=== PATIENT | female | born 1950 | race Caucasian/White ===

== ENCOUNTER 2017-06-26 12:38 | Emergency (ER) | payer MEDICARE, BC ==
--- NOTE | 2017-06-26 13:25 | EDM.PDOC ---
ED HPI GENERAL MEDICAL PROBLEM - General Chief Complaint: ENT Problem Stated Complaint: SINUS' Time Seen by Provider: 06/26/17 13:05 Source of Information: Reports: Patient, RN, RN Notes Reviewed History Limitations: Reports: No Limitations - History of Present Illness INITIAL COMMENTS - FREE TEXT/NARRATIVE: Pt presents to the ER with c/o cough, congestion, sore throat, ears feeling full , headache, and teeth aching for about 2 weeks. Pt denies fever or chills. She states she has had a productive cough with dark green sputum. She states she has been taking everything over the counter that she can think of. About 2 weeks ago she had aching in her back and down her legs. She states that resolved , but the head cold has progressively gotten worse. Onset: Gradual Location: Reports: Head, Face, Chest Severity: Moderate Improves with: Reports: None Worsens with: Reports: None Headache Pain Score (Numeric/FACES): 5 - Related Data Allergies Allergy/AdvReac Type Severity Reaction Status Date / Time cephalexin Allergy Unknown Itching Verified 11/20/14 09:09 hydrocodone Allergy Unknown Itching Verified 11/20/14 09:09 meloxicam Allergy Unknown INTOLERANCE Verified 11/20/14 09:09 tramadol HCl [From Ultram] Allergy Unknown Itching Verified 11/20/14 09:09 environmental allergies Allergy Other Uncoded 06/26/17 12:45 Home Meds: Home Meds Alendronate [Fosamax] 70 mg PO WEEKLY 07/20/16 [History] Hydrochlorothiazide 12.5 mg PO DAILY 07/20/16 [History] Methotrexate 22.5 mg PO .Tuesday07/20/16 [History] Metoprolol Tartrate [Lopressor] 50 mg PO BID 07/20/16 [History] Pantoprazole Sodium 40 mg PO DAILY 07/20/16 [History] Simvastatin [Zocor] 20 mg PO BEDTIME 07/20/16 [History] Venlafaxine [Effexor XR] 75 mg PO DAILY 07/20/16 [History] Zolpidem [Ambien] 10 mg PO BEDTIME 07/20/16 [History] Golimumab [Simponi Aria] 50 mg IV .[id number] 06/26/17 [History] Past Medical History 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 History: Reports: GERD 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: Musculoskeletal History: Reports: RA - Infectious Disease History Infectious Disease History: Reports: Chicken Pox, Measles, Mumps - Past Surgical History Female Surgical History: Reports: Hysterectomy, Other (See Below) Other Female Surgeries/Procedures: bladder lift Musculoskeletal Surgical History: Reports: Other (See Below) Other Musculoskeletal Surgeries/Procedures:: wrist fracture Social & Family History - Family History Family Medical History: Noncontributory - Tobacco Use Smoking Status *Q: Never Smoker Second Hand Smoke Exposure: No - Caffeine Use Caffeine Use: Reports: Coffee - Recreational Drug Use Recreational Drug Use: No ED ROS ENT - Review of Systems Review Of Systems: ROS reveals no pertinent complaints other than HPI. ED EXAM, ENT - Physical Exam Exam: See Below Exam Limited By: No Limitations General Appearance: Alert, WD/WN, Mild Distress Eye Exam: Bilateral Eye: EOMI, Normal Inspection Ears: Normal External Exam, Hearing Grossly Normal, TM Blood (right) Nose: Nasal Discharge, Other (injected turbinates bilaterally) Mouth/Throat: Normal Inspection, Normal Gums, Normal Lips, Tonsillar Erythema, Tonsillar Swelling Head: Atraumatic, Normocephalic Neck: Normal Inspection, Supple, Non-Tender, Full Range of Motion Respiratory/Chest: No Respiratory Distress, No Accessory Muscle Use, Chest Non- Tender, Decreased Breath Sounds, Rhonchi (upper lobes) Cardiovascular: Normal Peripheral Pulses, Regular Rate, Rhythm, No Edema, No Gallop, No JVD, No Murmur, No Rub GI/Abdominal: Normal Bowel Sounds, Soft, Non-Tender, No Organomegaly, No Distention, No Abnormal Bruit, No Mass (Female) Exam: Deferred Rectal (Female) Exam: Deferred Back: Normal Inspection, Full Range of Motion Extremities: Normal Inspection, Normal Range of Motion, Non-Tender, No Pedal Edema, Normal Capillary Refill Neurological: Alert, Oriented, CN II-XII Intact, Normal Cognition, Normal Gait, Normal Reflexes, No Motor/Sensory Deficits Psychiatric: Normal Affect, Normal Mood Skin: Warm, Dry, Intact, Normal Color, No Rash Lymphatic: No Adenopathy Course - Vital Signs Last Recorded V/S: Last Vital Signs Temp 97.8 F 06/26/17 12:53 Pulse 105 H 06/26/17 12:53 Resp 18 06/26/17 12:53 BP 146/91 H 12/31/17 13:20 Pulse Ox 95 06/26/17 12:53 Departure - Departure Time of Disposition: 13:23 Disposition: Home, Self-Care 01 Condition: Fair Clinical Impression: Bronchitis Sinusitis Qualifiers: Sinusitis location: unspecified location Chronicity: acute Recurrence: not specified as recurrent Qualified Code(s): J01.90 - Acute sinusitis, unspecified - Discharge Information Instructions: Sinusitis, Adult, [id number] Forms: ED Department Discharge Additional Instructions: Drink plenty of water RX: Cheratussin, Flonase, Augmentin Continue using OTC decongestants Follow up with your primary care facility if no improvement
== END 2017-06-26 13:40 | disposition home or self-care (01) ==
LOC: DL.ED 12:38
DX: J40 Bronchitis, not specified as acute or chronic (principal); J01.90 Acute sinusitis, unspecified; Z88.1 Allergy status to other antibiotic agents; Z88.5 Allergy status to narcotic agent; Z88.8 Allergy status to other drugs, medicaments and biological substances; Z79.899 Other long term (current) drug therapy
CPT/HCPCS: 99283

== ENCOUNTER 2019-04-28 17:08 | Emergency (ER) | payer MEDICARE, BC ==
[2019-04-28] MEDS ORDERED: Aspirin 81 MG Tab.Chew ONE (17:59)
[2019-04-28] MEDS ORDERED: Aspirin 81 MG Tab.Chew PO ONE (18:04)
[2019-04-28] MEDS ORDERED: Sodium Chloride 0.9% 10 ML Syringe FLUSH PRN (18:05)
[2019-04-28] MEDS: Nitroglycerin 0.4 MG Tab.SL SL PRN ×2 (18:17→18:34)
[2019-04-28 18:41] LABS: ANION GAP 12.6; CHLORIDE,CL 100 mmol/L (101-111); SODIUM,NA 139 mmol/L (135-145)
--- NOTE | 2019-04-28 19:17 | EDM.PDOC ---
Scribed by Christina Blackwell 04/28/19 1910 for Aminata Cobian MD ED HPI GENERAL MEDICAL PROBLEM - General Chief Complaint: Cardiovascular Problem Stated Complaint: HIGH BP Time Seen by Provider: 04/28/19 17:34 Source of Information: Reports: Patient, RN, RN Notes Reviewed History Limitations: Reports: No Limitations - History of Present Illness INITIAL COMMENTS - FREE TEXT/NARRATIVE: Patient presents to the ER via POV. She went in for back injections two to three days ago. Her blood pressure has increased since having these injections. Patient also complains of dull pressure in chest but states "its not bad". Patient had a single cardiac stent in September, due to a similar chest pressure. However, chest pressure has continued to recur despite the placement of the stent. She was subsequently referred to pulmonology where she was diagnosed with mild asthma. Patient states that the asthma treatments made no difference in her chest pressure. The chest pressure that she has experienced over the past several days is described "exactly the same" that she has had throughout the past year. Onset: Gradual Duration: Constant Location: Reports: Chest Quality: Reports: Ache Severity: Moderate Improves with: Reports: None Worsens with: Reports: None Associated Symptoms: Reports: No Other Symptoms Back Pain Score (Numeric/FACES): 5 - Related Data Allergies Allergy/AdvReac Type Severity Reaction Status Date / Time cephalexin Allergy Unknown Itching Verified 11/13/18 11:23 hydrocodone Allergy Unknown Itching Verified 11/13/18 11:23 meloxicam Allergy Unknown INTOLERANCE Verified 11/13/18 11:23 tramadol HCl [From Ultram] Allergy Unknown Itching Verified 11/13/18 11:23 environmental allergies Allergy Other Uncoded 11/13/18 11:23 Home Meds: Home Meds Alendronate [Fosamax] 70 mg PO WEEKLY 07/20/16 [History] Hydrochlorothiazide 25 mg PO DAILY 07/20/16 [History] Methotrexate 17.5 mg PO WEEKLY 07/20/16 [History] Metoprolol Tartrate [Lopressor] 50 mg PO BID 07/20/16 [History] Pantoprazole Sodium 40 mg PO DAILY 07/20/16 [History] Venlafaxine [Effexor XR] 75 mg PO DAILY 07/20/16 [History] Zolpidem [Ambien] 10 mg PO BEDTIME 07/20/16 [History] Aspirin [Lo-Dose Aspirin EC] 81 mg PO DAILY 11/09/18 [History] Calcium Carbonate/Vitamin D3 [Calcium 500 + Vit D Caplet] 3 tab PO DAILY [History] Clopidogrel Bisulfate [Clopidogrel] 75 mg PO DAILY 11/09/18 [History] Clotrimazole [Clotrimazole 1%] 1 applic TOP BID PRN 11/09/18 [History] Fluticasone Propionate [Flonase] 1 spray NASBOTH DAILY PRN 11/09/18 [History] Folic Acid 2 mg PO DAILY 11/09/18 [History] Hydroxychloroquine [Plaquenil] 400 mg PO BID 11/09/18 [History] Losartan [Cozaar] 100 mg PO DAILY 11/09/18 [History] Pilocarpine [Salagen] 5 mg PO TID PRN 11/09/18 [History] cycloSPORINE [Restasis] 1 drop EYEBOTH ASDIRECTED PRN 11/09/18 [History] sulfaSALAzine [Azulfidine] 1,000 mg PO DAILY 11/09/18 [History] Past Medical History Cardiovascular History: Reports: PTCA 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: Reports: 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: Musculoskeletal History: Reports: RA - Infectious Disease History Infectious Disease History: Reports: Chicken Pox, Measles, Mumps - Past Surgical History Cardiovascular Surgical History: Reports: Coronary Artery Stent Female Surgical History: Reports: Hysterectomy, Other (See Below) Other Female Surgeries/Procedures: bladder lift Musculoskeletal Surgical History: Reports: Other (See Below) Other Musculoskeletal Surgeries/Procedures:: wrist fracture Social & Family History - Family History Family Medical History: Noncontributory - Caffeine Use Caffeine Use: Reports: Coffee - Living Situation & Occupation Living situation: Reports: with Family ED ROS GENERAL - Review of Systems Review Of Systems: ROS reveals no pertinent complaints other than HPI. ED EXAM, GENERAL - Physical Exam Exam: See Below Exam Limited By: No Limitations General Appearance: Alert, WD/WN, No Apparent Distress, Anxious, Obese Eye Exam: Bilateral Eye: EOMI, Normal Inspection Ears: Normal External Exam, Normal Canal, Hearing Grossly Normal, Normal TMs Nose: Normal Inspection, Normal Mucosa, No Blood Throat/Mouth: Normal Inspection, Normal Lips, Normal Oropharynx, Normal Voice, No Airway Compromise Head: Atraumatic, Normocephalic Neck: Normal Inspection, Full Range of Motion Respiratory/Chest: No Respiratory Distress, Lungs Clear, Normal Breath Sounds, No Accessory Muscle Use, Chest Non-Tender Cardiovascular: Normal Peripheral Pulses, Regular Rate, Rhythm, No Edema, No Gallop, No JVD, No Murmur, No Rub GI/Abdominal: Normal Bowel Sounds, Soft, Non-Tender, No Organomegaly, No Distention, No Abnormal Bruit, No Mass (Female) Exam: Deferred Rectal (Female) Exam: Deferred Back Exam: Normal Inspection, Full Range of Motion, NT Extremities: Normal Inspection, Normal Range of Motion, Non-Tender, Normal Capillary Refill, No Pedal Edema Neurological: Alert, Oriented, CN II-XII Intact, Normal Cognition, Normal Gait, No Motor/Sensory Deficits Psychiatric: Normal Affect, Normal Mood Skin Exam: Warm, Dry, Intact, Normal Color, No Rash EKG INTERPRETATION EKG Date: 04/28/19 Time: 17:43 Rhythm: Other (sinus rhythm) Rate (Beats/Min): 85 [place]: Normal P-Wave: Present QRS: Normal ST-T: Normal QT: Normal Comparison: NA - No Prior EKG Course - Vital Signs Last Recorded V/S: Last Vital Signs Temp 98.3 F 04/28/19 17:31 Pulse 90 04/28/19 17:31 Resp 18 04/28/19 17:31 BP 156/93 H 04/28/19 18:34 Pulse Ox 95 04/28/19 17:31 - Orders/Labs/Meds Orders: Active Orders 24 hr Category Date Time Status EKG 12 Lead [EKG Documentation Completion] [RC] STAT Care 04/28/19 18:05 Active Peripheral IV Care [RC] . DIRECTED Care 04/28/19 18:05 Active Chest 1V Frontal [CR] Stat Exams 04/28/19 18:05 Taken Nitroglycerin [Nitrostat] Med 04/28/19 18:04 Active 0.4 mg SL Q5M PRN Sodium Chloride 0.9% [Saline Flush] Med 04/28/19 18:05 Active 10 ml FLUSH ASDIRECTED PRN Peripheral IV Insertion Adult [OM.PC] Stat Oth 04/28/19 18:05 Ordered Medication Orders Nitroglycerin (Nitrostat) 0.4 mg SL Q5M PRN PRN Reason: Chest Pain Last Admin: 04/28/19 18:34 Dose: 0.4 mg Admin: 04/28/19 18:17 Dose: 0.4 mg Sodium Chloride (Saline Flush) 10 ml FLUSH ASDIRECTED PRN PRN Reason: Keep Vein Open Labs: Laboratory Tests 04/28/19 04/28/19 04/28/19 Range/Units 18:11 18:11 18:11 WBC 8.9 (5.0-10.0) 10^3/uL RBC 4.27 (4.2-5.4) 10^6/uL Hgb 13.8 (12.0-16.0) g/dL Hct 42.3 (37.0-47.0) % MCV 99.1 (80-100) fL MCH 32.3 (27.0-34.0) pg MCHC 32.6 L (33.0-35.0) g/dL Plt Count 305 (150-450) 10^3/uL Neut % (Auto) 66.7 (42.2-75.2) % Lymph % (Auto) 19.3 L (20.5-50.1) % [place] % (Auto) 13.5 H (2-8) % Eos % (Auto) 0.2 L (1.0-3.0) % Baso % (Auto) 0.3 (0.0-1.0) % PT 10.1 (9.0-12.0) SEC INR 1.0 (0.9-1.2) APTT 23.0 (22.0-34.0) SEC Sodium 139 (135-145) mmol/L Potassium 3.6 (3.6-5.0) mmol/L Chloride 100 L (101-111) mmol/L Carbon Dioxide 30.0 (21.0-31.0) mmol/L Anion Gap 12.6 BUN 24 H (7-18) mg/dL Creatinine 0.7 (0.6-1.3) mg/dL Est Cr Clr Drug Dosing 67.29 mL/min Estimated GFR (MDRD) > 60 BUN/Creatinine Ratio 34.28 Glucose 103 (74-105) mg/dL Calcium 10.3 H (8.4-10.2) mg/dl Total Bilirubin 0.6 (0.2-1.0) mg/dL AST 17 (10-42) IU/L ALT 14 (10-60) IU/L Alkaline Phosphatase 60 (42-121) IU/L Troponin I < 0.02 (0.00-0.02) ng/ml Total Protein 7.1 (6.7-8.2) g/dl Albumin 4.2 (3.2-5.5) g/dl Globulin 2.9 Albumin/Globulin Ratio 1.45 Amylase 56 (28-100) U/L Lipase 37 (22-51) U/L Meds: Medications Generic Name Dose Route Start Last Admin Trade Name Freq PRN Reason Stop Dose Admin Nitroglycerin 0.4 mg 04/28/19 18:04 04/28/19 18:34 Nitrostat SL 0.4 mg Q5M PRN Administration Chest Pain Sodium Chloride 10 ml 04/28/19 18:05 Saline Flush FLUSH ASDIRECTED PRN Keep Vein Open Discontinued Medications Generic Name Dose Route Start Last Admin Trade Name Freq PRN Reason Stop Dose Admin Aspirin Confirm 04/28/19 17:59 04/28/19 18:28 Aspirin Administered 04/28/19 18:00 Not Given Dose 324 mg .ROUTE .STK-MED ONE Aspirin 243 mg 04/28/19 18:04 04/28/19 18:15 Aspirin PO 04/28/19 18:05 243 mg ONETIME ONE Administration - Radiology Interpretation Free Text/Narrative:: [facility] [place] [facility] Final Radiology Report Call: [phone] assistance Online chat: [email or web address] Name: ANTONINO LEDEZMA Age: 68Years F Date: 04/28/2019 SSN: -- : 1950 Study: XR CHEST 1 VIEW FRONTAL Requesting Physician: AMINATA COBIAN Images: 1 Addl Studies: Provided Clinical History: Contrast: Contrast Medium: Contrast Amount: Contrast Method: CONFIDENTIALITY STATEMENT This report is intended only for use by the referring physician, and only in accordance with law. If you received this in error, call [phone]. Page 1 of 1 PROCEDURE INFORMATION: Exam: XR Chest, 1 View Exam date and time: 04/28/2019 6:38 PM Clinical history: 68 years old, female; Other: Chest pain TECHNIQUE: Imaging protocol: XR of the chest Views: 1 view. COMPARISON: CT Chest wo Cont 02/22/2019 2:50 PM FINDINGS: Tubes, catheters and devices: EKG leads overlie the chest. Lungs: Unremarkable. No consolidation. Pleural space: Unremarkable. No pleural effusion. No pneumothorax. Heart/Mediastinum: Unremarkable. No cardiomegaly. Bones/joints: Unremarkable. IMPRESSION: No acute findings. Thank you for allowing us to participate in the care of your patient. Dictated and Authenticated by: Eleuterio Cook MD 04/28/2019 6:51 PM Central Time ([place] & [place]) Departure - Departure Time of Disposition: 19:11 Disposition: Home, Self-Care 01 Condition: Good Clinical Impression: Transient elevated blood pressure, Chest pressure - Discharge Information *PRESCRIPTION DRUG MONITORING PROGRAM REVIEWED*: No *COPY OF PRESCRIPTION DRUG MONITORING REPORT IN PATIENT AKUA: No Instructions: Hypertension, Nonspecific Chest Pain Forms: ED Department Discharge Additional Instructions: Follow up in clinic this week for blood pressure recheck. Return to ER if chest pain/pressure worsens, or if any new symptoms develop. Return to ER if blood pressure is over 210 on top number, or 110 on bottom number. - My Orders Last 24 Hours: My Active Orders 04/28/19 18:04 Nitroglycerin [Nitrostat] 0.4 mg SL Q5M PRN 04/28/19 18:05 EKG 12 Lead [EKG Documentation Completion] [RC] STAT Peripheral IV Care [RC] . DIRECTED Chest 1V Frontal [CR] Stat Sodium Chloride 0.9% [Saline Flush] 10 ml FLUSH ASDIRECTED PRN Peripheral IV Insertion Adult [OM.PC] Stat - Assessment/Plan Last 24 Hours: My Active Orders 04/28/19 18:04 Nitroglycerin [Nitrostat] 0.4 mg SL Q5M PRN 04/28/19 18:05 EKG 12 Lead [EKG Documentation Completion] [RC] STAT Peripheral IV Care [RC] . DIRECTED Chest 1V Frontal [CR] Stat Sodium Chloride 0.9% [Saline Flush] 10 ml FLUSH ASDIRECTED PRN Peripheral IV Insertion Adult [OM.PC] Stat I have read and agree with the documentation that has been completed regarding this visit. By signing this record, I attest that the documentation was completed in my physical presence and is an accurate record of the encounter.
== END 2019-04-28 19:24 | disposition home or self-care (01) ==
LOC: DL.ED 17:08
DX: R03.0 Elevated blood-pressure reading, without diagnosis of hypertension (principal); R07.89 Other chest pain; J45.909 Unspecified asthma, uncomplicated; K21.9 Gastro-esophageal reflux disease without esophagitis; M06.9 Rheumatoid arthritis, unspecified; E66.9 Obesity, unspecified; Z68.35 Body mass index [BMI] 35.0-35.9, adult; Z95.5 Presence of coronary angioplasty implant and graft; Z91.09 Other allergy status, other than to drugs and biological substances; Z88.1 Allergy status to other antibiotic agents; Z88.5 Allergy status to narcotic agent; Z88.6 Allergy status to analgesic agent; Z79.02 Long term (current) use of antithrombotics/antiplatelets; Z79.82 Long term (current) use of aspirin; Z79.899 Other long term (current) drug therapy
CPT/HCPCS: 36415; 71045; 80053; 82150; 83690; 84484; 85025; 85610; 85730; 93005; 99285; A9270

== ENCOUNTER 2020-05-12 21:05 | Emergency (ER) | payer MEDICARE, BC ==
[2020-05-12] MEDS ORDERED: Sodium Chloride 0.9% 1,000 ML IV ONE (21:28)
--- NOTE | 2020-05-12 22:57 | EDM.PDOC ---
ED HPI GENERAL MEDICAL PROBLEM - General Chief Complaint: 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 Problem Stated Complaint: LOW BLOOD PRESSURE Time Seen by Provider: 05/12/20 21:10 Source of Information: Reports: Patient, Family History Limitations: Reports: No Limitations - History of Present Illness INITIAL COMMENTS - FREE TEXT/NARRATIVE: diarrhea one week tonight BP low in clinic today told to take additional metoprolol but did not due to already low BP. Daughter stejen check BP and multiple in 70's and 80's. No chest pain or SOB. daughter dx covid 04/23. denies exposure. Loose watery explosive stools 10+ per day. No fever or chills, No vomiting, Weak today. Seen in clinic. Appetite decreased. On doxycycline for skin condition for months. - Related Data Allergies Allergy/AdvReac Type Severity Reaction Status Date / Time cephalexin Allergy Unknown Itching Verified 11/13/18 11:23 hydrocodone Allergy Unknown Itching Verified 11/13/18 11:23 meloxicam Allergy Unknown INTOLERANCE Verified 11/13/18 11:23 tramadol HCl [From Ultram] Allergy Unknown Itching Verified 11/13/18 11:23 environmental allergies Allergy Other Uncoded 11/13/18 11:23 Home Meds: Home Meds Alendronate [Fosamax] 70 mg PO WEEKLY 07/20/16 [History] Hydrochlorothiazide 25 mg PO DAILY 07/20/16 [History] Methotrexate 17.5 mg PO WEEKLY 07/20/16 [History] Metoprolol Tartrate [Lopressor] 50 mg PO BID 07/20/16 [History] Pantoprazole Sodium 40 mg PO DAILY 07/20/16 [History] Venlafaxine [Effexor XR] 75 mg PO DAILY 07/20/16 [History] Zolpidem [Ambien] 10 mg PO BEDTIME 07/20/16 [History] Aspirin [Lo-Dose Aspirin EC] 81 mg PO DAILY 11/09/18 [History] Calcium Carbonate/Vitamin D3 [Calcium 500 + Vit D Caplet] 3 tab PO DAILY 11/09/18 [History] Clopidogrel Bisulfate [Clopidogrel] 75 mg PO DAILY 11/09/18 [History] Clotrimazole [Clotrimazole 1%] 1 applic TOP BID PRN 11/09/18 [History] Fluticasone Propionate [Flonase] 1 spray NASBOTH DAILY PRN 11/09/18 [History] Folic Acid 2 mg PO DAILY 11/09/18 [History] Hydroxychloroquine [Plaquenil] 400 mg PO BID 11/09/18 [History] Losartan [Cozaar] 100 mg PO DAILY 11/09/18 [History] Pilocarpine [Salagen] 5 mg PO TID PRN 11/09/18 [History] cycloSPORINE [Restasis] 1 drop EYEBOTH ASDIRECTED PRN 11/09/18 [History] sulfaSALAzine [Azulfidine] 1,000 mg PO DAILY 11/09/18 [History] Doxycycline Hyclate 100 mg PO 05/12/20 [History] atorvaSTATin [Lipitor] 20 mg PO 05/12/20 [History] predniSONE 5 mg PO 05/12/20 [History] Past Medical History HEENT History: Reports: Cataract, Hard of Hearing, Sinusitis Cardiovascular History: Reports: PTCA Respiratory History: Reports: Bronchitis, Recurrent 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 History: Reports: GERD Genitourinary History: Reports: None [employer] History: Reports: Musculoskeletal History: Reports: RA Neurological History: Reports: None Psychiatric History: Reports: None Endocrine/Metabolic History: Reports: None Hematologic History: Reports: None Oncologic (Cancer) History: Reports: None Dermatologic History: Reports: None - Infectious Disease History Infectious Disease History: Reports: Chicken Pox, Measles, Mumps - Past Surgical History Head Surgeries/Procedures: Reports: None HEENT Surgical History: Reports: Cataract Surgery Cardiovascular Surgical History: Reports: Coronary Artery Stent Female Surgical History: Reports: Hysterectomy, Other (See Below) Other Female Surgeries/Procedures: bladder lift Musculoskeletal Surgical History: Reports: Other (See Below) Other Musculoskeletal Surgeries/Procedures:: wrist fracture Social & Family History - Family History Family Medical History: No Pertinent Family History - Tobacco Use Tobacco Use Status *Q: Never Tobacco User Second Hand Smoke Exposure: No - Caffeine Use Caffeine Use: Reports: Coffee - Recreational Drug Use Recreational Drug Use: No - Living Situation & Occupation Living situation: Reports: with Family ED ROS GENERAL - Review of Systems Review Of Systems: See Below Constitutional: Reports: Malaise, Fatigue HEENT: Reports: Glasses, Hearing Loss Respiratory: Reports: No Symptoms Cardiovascular: Reports: No Symptoms GI/Abdominal: Reports: Diarrhea, Nausea. Denies: Abdominal Pain, Hematemesis : Reports: No Symptoms Musculoskeletal: Reports: No Symptoms Skin: Reports: No Symptoms Neurological: Reports: Dizziness ED EXAM, GI/ABD - Physical Exam Exam: See Below Exam Limited By: No Limitations General Appearance: Alert, Mild Distress Eyes: Bilateral: EOMI Ears: Normal External Exam Nose: Normal Inspection Throat/Mouth: Normal Inspection Head: Atraumatic, Normocephalic Neck: Normal Inspection Respiratory/Chest: No Respiratory Distress, Lungs Clear, Normal Breath Sounds Cardiovascular: Normal Peripheral Pulses, Regular Rate, Rhythm GI/Abdominal Exam: Normal Bowel Sounds, Soft, Non-Tender. No: Distended, Guarding, Rebound, Tender Neurological: Alert, Oriented, Normal Cognition Psychiatric: Normal Affect, Normal Mood Skin Exam: Warm, Dry, Intact, Normal Color, No Rash Course - Vital Signs Last Recorded V/S: Last Vital Signs Temp 96.9 F 05/12/20 21:07 Pulse 87 05/12/20 21:07 Resp 18 05/12/20 21:07 BP 100/62 05/12/20 21:07 Pulse Ox 95 05/12/20 21:07 Orthostatic Blood Pressure [ 104/53 Standing] Orthostatic Blood Pressure [ 103/58 Sitting] Orthostatic Blood Pressure [ 97/49 Supine] - Orders/Labs/Meds Orders: Active Orders 24 hr Category Date Time Status CLOSTRIDIUM DIFFICILE TOX RFLX [MREF] Stat Lab 05/12/20 21:35 Received CULTURE STOOL [RM] Stat Lab 05/12/20 23:10 Received SHIGA TOXIN 1 & 2 [MREF] Stat Lab 05/12/20 23:10 Received Isolation [COMM] Stat Oth 05/12/20 21:25 Active Labs: Laboratory Tests 05/12/20 05/12/20 05/12/20 Range/Units 21:35 21:43 21:43 WBC 5.0 (5.0-10.0) 10^3/uL RBC 4.57 (4.2-5.4) 10^6/uL Hgb 14.3 (12.0-16.0) g/dL Hct 42.8 (37.0-47.0) % MCV 93.7 D (80-100) fL MCH 31.3 (27.0-34.0) pg MCHC 33.4 (33.0-35.0) g/dL Plt Count 202 D (150-450) 10^3/uL Neut % (Auto) 57.5 (42.2-75.2) % Lymph % (Auto) 16.1 L (20.5-50.1) % [place] % (Auto) 25.2 H (2-8) % Eos % (Auto) 0.8 L (1.0-3.0) % Baso % (Auto) 0.4 (0.0-1.0) % Add Manual Diff Yes Neutrophils % (Manual) 59 (42-75) % Lymphocytes % (Manual) 19 L (20-50) % Monocytes % (Manual) 22 H (2-8) % Sodium 133 L (136-145) mmol/L Potassium 3.0 L (3.5-5.1) mmol/L Chloride 95 L (98-107) mmol/L Carbon Dioxide 29 (21-32) mmol/L Anion Gap 12.0 (7-13) mEq/L BUN 23 H (7-18) mg/dL Creatinine 2.21 H (0.55-1.02) mg/dL Est Cr Clr Drug Dosing 21.01 mL/min Estimated GFR (MDRD) 22 BUN/Creatinine Ratio 10.4 (No establ ref range) Glucose 116 H (74-99) mg/dL Lactic Acid (0.4-2.0) mmol/L Calcium 8.1 L (8.5-10.1) mg/dL Magnesium 1.6 L (1.8-2.4) mg/dL Total Bilirubin 0.5 (0.2-1.0) mg/dL AST 12 L (15-37) U/L ALT 17 (14-59) U/L Alkaline Phosphatase 71 (46-116) U/L Total Protein 6.2 L (6.4-8.2) g/dL Albumin 2.6 L (3.4-5.0) g/dL Globulin 3.6 Albumin/Globulin Ratio 0.72 Amylase 29 (25-115) U/L Lipase 53 L (73-393) U/L SARS CoV-2 RNA Rapid KARTHIK Negative (NEGATIVE) 05/12/20 Range/Units 21:43 WBC (5.0-10.0) 10^3/uL RBC (4.2-5.4) 10^6/uL Hgb (12.0-16.0) g/dL Hct (37.0-47.0) % MCV (80-100) fL MCH (27.0-34.0) pg MCHC (33.0-35.0) g/dL Plt Count (150-450) 10^3/uL Neut % (Auto) (42.2-75.2) % Lymph % (Auto) (20.5-50.1) % [place] % (Auto) (2-8) % Eos % (Auto) (1.0-3.0) % Baso % (Auto) (0.0-1.0) % Add Manual Diff Neutrophils % (Manual) (42-75) % Lymphocytes % (Manual) (20-50) % Monocytes % (Manual) (2-8) % Sodium (136-145) mmol/L Potassium (3.5-5.1) mmol/L Chloride (98-107) mmol/L Carbon Dioxide (21-32) mmol/L Anion Gap (7-13) mEq/L BUN (7-18) mg/dL Creatinine (0.55-1.02) mg/dL Est Cr Clr Drug Dosing mL/min Estimated GFR (MDRD) BUN/Creatinine Ratio (No establ ref range) Glucose (74-99) mg/dL Lactic Acid 1.1 (0.4-2.0) mmol/L Calcium (8.5-10.1) mg/dL Magnesium (1.8-2.4) mg/dL Total Bilirubin (0.2-1.0) mg/dL AST (15-37) U/L ALT (14-59) U/L Alkaline Phosphatase (46-116) U/L Total Protein (6.4-8.2) g/dL Albumin (3.4-5.0) g/dL Globulin Albumin/Globulin Ratio Amylase (25-115) U/L Lipase (73-393) U/L SARS CoV-2 RNA Rapid KARTHIK (NEGATIVE) Meds: Medications Discontinued Medications Generic Name Dose Route Start Last Admin Trade Name Freq PRN Reason Stop Dose Admin Sodium Chloride 1,000 mls @ 250 mls/hr 05/12/20 21:28 05/12/20 21:54 Normal Saline IV 05/13/20 01:27 250 mls/hr .BOLUS ONE Administration - Re-Assessments/Exams Free Text/Narrative Re-Assessment/Exam: 05/13/20 04:22 BP improved with fluids, appears more alert and conversant with daughter. Results reviewed with patient and daughter. Departure - Departure Time of Disposition: 22:57 Disposition: Home, Self-Care 01 Condition: Good Clinical Impression: Diarrhea, Dehydration - Discharge Information *PRESCRIPTION DRUG MONITORING PROGRAM REVIEWED*: No *COPY OF PRESCRIPTION DRUG MONITORING REPORT IN PATIENT AKUA: No Instructions: Dehydration, Elderly, [id number], Diarrhea, Adult, [id number] Forms: ED Department Discharge Additional Instructions: BRAT diet limit milk products 24 hours small sips liquid more frequently hold doxycycline 48 hours Change positions slowly follow up clinic if not improving Sepsis Event Note (ED) - Evaluation Sepsis Screening Result: No Definite Risk - Focused Exam Vital Signs: Vital Signs Temp Pulse Resp BP Pulse Ox 05/12/20 21:07 96.9 F 87 18 100/62 95 - My Orders Last 24 Hours: My Active Orders 05/12/20 21:25 Isolation [COMM] Stat 05/12/20 21:35 CLOSTRIDIUM DIFFICILE TOX RFLX [MREF] Stat 05/12/20 23:10 CULTURE STOOL [RM] Stat SHIGA TOXIN 1 & 2 [MREF] Stat - Assessment/Plan Last 24 Hours: My Active Orders 05/12/20 21:25 Isolation [COMM] Stat 05/12/20 21:35 CLOSTRIDIUM DIFFICILE TOX RFLX [MREF] Stat 05/12/20 23:10 CULTURE STOOL [RM] Stat SHIGA TOXIN 1 & 2 [MREF] Stat
== END 2020-05-12 23:20 | disposition home or self-care (01) ==
LOC: DL.ED 21:05
DX: E86.0 Dehydration (principal); R19.7 Diarrhea, unspecified; K21.9 Gastro-esophageal reflux disease without esophagitis; Z20.828 Contact with and (suspected) exposure to other viral communicable diseases; Z88.5 Allergy status to narcotic agent; Z88.1 Allergy status to other antibiotic agents; Z90.710 Acquired absence of both cervix and uterus; Z95.5 Presence of coronary angioplasty implant and graft; Z91.09 Other allergy status, other than to drugs and biological substances; Z79.899 Other long term (current) drug therapy
CPT/HCPCS: 36415; 80053; 82150; 83605; 83690; 83735; 85025; 87045; 87046; 87493; 87899; 99283; 99284; J7030; U0002

== ENCOUNTER 2024-07-17 11:10 | Inpatient (IN) | payer MEDICARE, BC ==
[2024-07-17 12:31] LABS: HEMATOCRIT 39.1 % (37.0-47.0); HEMOGLOBIN 12.6 g/dL (12.0-16.0); MEAN CORPUSCULAR HGB CONC 32.2 g/dL (33.0-35.0); MEAN CORPUSCULAR VOLUME 102.4 fL (80-100); PLATELET COUNT,PLT 331 10^3/uL (150-450); RED BLOOD CELL COUNT 3.82 10^6/uL (4.2-5.4)
[2024-07-17 12:43] LABS: BASOPHILS PERCENT AUTO 0.1 % (0.0-1.0); EOSINOPHILS PERCENT AUTO 1.2 % (1.0-3.0); LYMPHOCYTES PERCENT AUTO 8.8 % (20.5-50.1); MONOCYTES PERCENT AUTO 8.2 % (2-8); NEUTROPHILS PERCENT AUTO 81.7 % (42.2-75.2)
[2024-07-17 12:51] LABS: A/G RATIO 0.68; ALBUMIN 2.7 g/dL (3.4-5.0); ANION GAP 12.5 mEq/L (7-13); BILIRUBIN TOTAL 0.9 mg/dL (0.2-1.0); CALCIUM 9.8 mg/dL (8.5-10.1); CREATININE 1.69 mg/dL (0.55-1.02); EST CRCL DRUG DOSING (CG) 23.79 mL/min; MAGNESIUM 1.8 mg/dL (1.8-2.4); POTASSIUM,K 3.5 mmol/L (3.5-5.1); PROTEIN TOTAL,TP 6.7 g/dL (6.4-8.2)
[2024-07-17 13:16] LABS: EOSINOPHILS PERCENT MAN 1 % (1-3); LYMPHOCYTES PERCENT MAN 7 % (20-50); MONOCYTES PERCENT MAN 12 % (2-8); SEG NEUTROPHILS PERCENT MAN 80 % (42-75)
[2024-07-17 14:21] LABS: LACTIC ACID 1.2 mmol/L (0.4-2.0)
[2024-07-17] MEDS: Sodium Chloride 0.9% 2,000 ML IV ONE (14:24)
[2024-07-17] MEDS: Ciprofloxacin in D5W 400 MG in Premix Bag 1 BAG IV ONE (14:24)
[2024-07-17] MEDS ORDERED: Docusate Sodium 100 MG Cap PO PRN (18:10)
[2024-07-17] MEDS ORDERED: Polyethylene Glycol 3350 Powder 17 GM Packet PO PRN (18:10)
[2024-07-17] MEDS ORDERED: Ondansetron 4 MG/2 ML SDV IVPUSH PRN (18:10)
[2024-07-17] MEDS: Ketorolac 30 MG/ML SDV IVPUSH PRN (19:41)
[2024-07-17] MEDS: methylPREDNISolone Sodium Succinate 40 MG/1 ML SDV IVPUSH SCH (19:46)
[2024-07-17] MEDS: Levofloxacin/Dextrose 5%-Water 150 ML IV ONE (20:10)
[2024-07-17] MEDS: Zolpidem 5 MG Tab PO SCH (22:24)
[2024-07-17] MEDS: Pantoprazole 40 MG Tab.CR PO SCH (22:24)
[2024-07-17] MEDS: Albuterol/Ipratropium 3.0-0.5 MG/3 ML Neb Soln NEB SCH (22:24)
[2024-07-17] MEDS: Metoprolol Tartrate 50 MG Tab PO SCH (22:25)
[2024-07-17] MEDS: Sodium Chloride 0.9% 1,000 ML IV SCH (22:45)
[2024-07-18] MEDS: Melatonin 3 MG Tab PO PRN (00:11)
[2024-07-18 06:36] LABS: BASOPHILS PERCENT AUTO 0.1 % (0.0-1.0); HEMATOCRIT 36.4 % (37.0-47.0); HEMOGLOBIN 11.7 g/dL (12.0-16.0); LYMPHOCYTES PERCENT AUTO 3.8 % (20.5-50.1); MEAN CORPUSCULAR HEMOGLOBIN 33.1 pg (27.0-34.0); MEAN CORPUSCULAR HGB CONC 32.1 g/dL (33.0-35.0); MEAN CORPUSCULAR VOLUME 102.8 fL (80-100); MONOCYTES PERCENT AUTO 1.2 % (2-8); NEUTROPHILS PERCENT AUTO 94.9 % (42.2-75.2); PLATELET COUNT,PLT 337 10^3/uL (150-450); RED BLOOD CELL COUNT 3.54 10^6/uL (4.2-5.4); WHITE BLOOD CELL COUNT,WBC 13.4 10^3/uL (5.0-10.0)
[2024-07-18 06:54] LABS: ALBUMIN 2.2 g/dL (3.4-5.0); ANION GAP 10.9 mEq/L (7-13); BILIRUBIN TOTAL 0.3 mg/dL (0.2-1.0); CALCIUM 9.4 mg/dL (8.5-10.1); CREATININE 1.67 mg/dL (0.55-1.02); EST CRCL DRUG DOSING (CG) 26.19 mL/min; MAGNESIUM 1.7 mg/dL (1.8-2.4); POTASSIUM,K 3.9 mmol/L (3.5-5.1); PROTEIN TOTAL,TP 6.1 g/dL (6.4-8.2)
[2024-07-18 06:55] LABS: INR 1.1 (0.9-1.2); PROTHROMBIN TIME 11.5 SEC (9.0-12.0); PTT,PARTIAL THROMBOPLSTIN TIME 33.8 SEC (22.0-34.0)
[2024-07-18 06:58] LABS: A/G RATIO 0.56
[2024-07-18 07:49] LABS: C-REACTIVE PROTEIN 18.15 ng/dL (<=0.50)
[2024-07-18 08:21] LABS: FOLIC ACID > 20.0 ng/mL (8.6-58.9)
[2024-07-18] MEDS: Cyanocobalamin (Vitamin B12) 1,000 MCG Tab PO SCH (08:42)
[2024-07-18] MEDS: Aspirin 81 MG Tab.EC PO SCH (08:42)
[2024-07-18] MEDS: Venlafaxine 37.5 MG Cap.ER PO SCH (08:42)
[2024-07-18] MEDS: atorvaSTATin 20 MG Tab PO SCH (08:42)
[2024-07-18] MEDS: Calcium Carbonate/Vitamin D3 1250 MG-5 MCG Tab PO SCH (08:43)
[2024-07-18] MEDS: Hydrochlorothiazide 25 MG Tab PO SCH (08:43)
[2024-07-18] MEDS: Enoxaparin 40 MG/0.4 ML Syringe SUBCUT SCH (08:44)
[2024-07-18] MEDS: Magnesium Sulfate/Water Premix 2 GM in Premix Bag 1 BAG IV ONE (08:44)
[2024-07-18] MEDS: Sodium Chloride 0.9% 1,000 ML IV SCH (13:48)
[2024-07-18] MEDS: PILOCARPINE 5 MG PO PRN (17:55)
[2024-07-18] MEDS: Acetaminophen 325 MG Tab PO PRN (21:46)
[2024-07-19] MEDS: Benzonatate 100 MG Cap PO PRN ×2 (03:20→09:00)
[2024-07-19 06:51] LABS: HEMATOCRIT 33.3 % (37.0-47.0); HEMOGLOBIN 10.6 g/dL (12.0-16.0); MEAN CORPUSCULAR HEMOGLOBIN 32.6 pg (27.0-34.0); MEAN CORPUSCULAR HGB CONC 31.8 g/dL (33.0-35.0); MEAN CORPUSCULAR VOLUME 102.5 fL (80-100); PLATELET COUNT,PLT 316 10^3/uL (150-450); RED BLOOD CELL COUNT 3.25 10^6/uL (4.2-5.4); WHITE BLOOD CELL COUNT,WBC 19.9 10^3/uL (5.0-10.0)
[2024-07-19 07:20] LABS: ALBUMIN 2.3 g/dL (3.4-5.0); ANION GAP 12.3 mEq/L (7-13); BILIRUBIN TOTAL 0.1 mg/dL (0.2-1.0); BUN/CREATININE RATIO 20.5 (No establ ref range); CALCIUM 9.3 mg/dL (8.5-10.1); CREATININE 1.32 mg/dL (0.55-1.02); EST CRCL DRUG DOSING (CG) 33.14 mL/min; MAGNESIUM 1.8 mg/dL (1.8-2.4); POTASSIUM,K 3.3 mmol/L (3.5-5.1); PROTEIN TOTAL,TP 5.8 g/dL (6.4-8.2)
[2024-07-19 07:23] LABS: BASOPHILS PERCENT AUTO 0.1 % (0.0-1.0); LYMPHOCYTES PERCENT AUTO 2.9 % (20.5-50.1); MONOCYTES PERCENT AUTO 4.2 % (2-8); NEUTROPHILS PERCENT AUTO 92.8 % (42.2-75.2)
[2024-07-19 07:25] LABS: A/G RATIO 0.66
[2024-07-19 07:49] LABS: BAND PERCENT MAN 1 %; LYMPHOCYTES PERCENT MAN 5 % (20-50); MONOCYTES PERCENT MAN 4 % (2-8); SEG NEUTROPHILS PERCENT MAN 90 % (42-75)
[2024-07-19] MEDS: Calcium Carbonate/Vitamin D3 1250 MG-5 MCG Tab PO SCH (08:56)
[2024-07-19] MEDS: Potassium Chloride 10 MEQ Tab.ER PO ONE ×3 (10:29→15:41)
[2024-07-19] MEDS: Formoterol/Mometasone 200-5 MCG 8.8 GM Inhaler INH SCH (11:33)
[2024-07-19] MEDS: Furosemide 100 MG/10 ML SDV IVPUSH ONE ×2 (11:33→15:41)
[2024-07-19] MEDS ORDERED: Glucagon,Human Recombinant 1 MG Vial IM PRN (16:35)
[2024-07-19] MEDS ORDERED: 50% Dextrose in Water 50 ML Syringe IVPUSH PRN (16:35)
[2024-07-19] MEDS: guaiFENesin 600 MG Tab.ER PO SCH (17:17)
[2024-07-19] MEDS: Insulin Lispro 100 Units/ML 3 ML Vial SUBCUT SCH (17:23)
[2024-07-19] MEDS: Levofloxacin/Dextrose 5%-Water 750 MG in Premix Bag 1 BAG IV SCH (20:24)
[2024-07-19] MEDS ORDERED: Levofloxacin/Dextrose 5%-Water 750 MG in Premix Bag 1 BAG IV SCH (21:00)
[2024-07-19] MEDS ORDERED: Sodium Chloride 0.9% 10 ML Syringe FLUSH PRN (22:32)
[2024-07-20 06:52] LABS: HEMATOCRIT 36.4 % (37.0-47.0); HEMOGLOBIN 11.6 g/dL (12.0-16.0); LYMPHOCYTES PERCENT AUTO 3.4 % (20.5-50.1); MEAN CORPUSCULAR HEMOGLOBIN 32.5 pg (27.0-34.0); MEAN CORPUSCULAR HGB CONC 31.9 g/dL (33.0-35.0); MONOCYTES PERCENT AUTO 4.4 % (2-8); NEUTROPHILS PERCENT AUTO 92.2 % (42.2-75.2); PLATELET COUNT,PLT 367 10^3/uL (150-450); RED BLOOD CELL COUNT 3.57 10^6/uL (4.2-5.4); WHITE BLOOD CELL COUNT,WBC 17.2 10^3/uL (5.0-10.0)
[2024-07-20 07:15] LABS: ALBUMIN 2.5 g/dL (3.4-5.0); ANION GAP 11.4 mEq/L (7-13); BILIRUBIN TOTAL 0.3 mg/dL (0.2-1.0); BUN/CREATININE RATIO 29.1 (No establ ref range); CALCIUM 9.8 mg/dL (8.5-10.1); CREATININE 1.17 mg/dL (0.55-1.02); EST CRCL DRUG DOSING (CG) 37.38 mL/min; MAGNESIUM 1.4 mg/dL (1.8-2.4); POTASSIUM,K 3.4 mmol/L (3.5-5.1); PROTEIN TOTAL,TP 6.1 g/dL (6.4-8.2)
[2024-07-20 07:21] LABS: A/G RATIO 0.69
[2024-07-20] MEDS: Magnesium Sulfate/Water Premix 4 GM in Premix Bag 1 BAG IV ONE (10:04)
[2024-07-20] MEDS: Potassium Chloride 10 MEQ Tab.ER PO ONE (10:04)
== END 2024-07-20 14:50 | disposition home or self-care (01) | DRG 682 ==
LOC: DL.ED 11:10 → DL.MS 16:39 → UNDOADMIN 16:39 → DL.MS 18:10 → UNDODISIN 07-20 14:50
PROVIDERS: ADMIT Internal Medicine; ATTEND Student in an Organized Health Care Education/Training Program
DX: J18.9 Pneumonia, unspecified organism (principal); N17.9 Acute kidney failure, unspecified; J44.9 Chronic obstructive pulmonary disease, unspecified; J18.8 Other pneumonia, unspecified organism; J44.0 Chronic obstructive pulmonary disease with (acute) lower respiratory infection; Z87.891 Personal history of nicotine dependence; Z88.1 Allergy status to other antibiotic agents; Z88.5 Allergy status to narcotic agent; Z91.09 Other allergy status, other than to drugs and biological substances; M06.9 Rheumatoid arthritis, unspecified; H91.90 Unspecified hearing loss, unspecified ear; K21.9 Gastro-esophageal reflux disease without esophagitis; J31.0 Chronic rhinitis; E86.0 Dehydration; I25.10 Atherosclerotic heart disease of native coronary artery without angina pectoris; E78.5 Hyperlipidemia, unspecified; E11.9 Type 2 diabetes mellitus without complications; G47.33 Obstructive sleep apnea (adult) (pediatric); D72.829 Elevated white blood cell count, unspecified; D75.89 Other specified diseases of blood and blood-forming organs; E87.6 Hypokalemia; E83.52 Hypercalcemia; E88.09 Other disorders of plasma-protein metabolism, not elsewhere classified; I11.9 Hypertensive heart disease without heart failure; E83.42 Hypomagnesemia; D53.9 Nutritional anemia, unspecified; Z72.0 Tobacco use; Z90.710 Acquired absence of both cervix and uterus; Z95.5 Presence of coronary angioplasty implant and graft; Z98.890 Other specified postprocedural states; Z88.8 Allergy status to other drugs, medicaments and biological substances; Z79.899 Other long term (current) drug therapy
CPT/HCPCS: 36415; 71046; 80053; 83605; 83735; 85025; 87040 ×2; 87070; 87205; 87428; 99284; J0744; J7030; 82607; 82746; 82947; 84132; 85610; 85730; 86140; 94640; 97161-GP; 97165-GO; 99223; 99232; 99238; A9270-GY; J1650; J1815-GY; J1885; J1940; J1956; J2919; J3475; J7620-GY